=== PATIENT | female | born 2000 | race Caucasian/White ===

== ENCOUNTER 2019-04-21 13:09 | Emergency (ER) | payer SELFPAY ==
[~2019-04-21] VITALS: Ht 175.3 cm; Wt 120.2 kg
[2019-04-21 13:19] VITALS: BP 163/108
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
[2019-04-21] MEDS ORDERED: NEOMY/BACITR/POLYMYXIN OINT PACKET. TP ONE (13:45)
== END 2019-04-21 15:05 | disposition home or self-care (01) ==
LOC: ER 13:09
DX: T24.202A Burn of second degree of unspecified site of left lower limb, except ankle and foot, initial encounter (principal); X17.XXXA Contact with hot engines, machinery and tools, initial encounter; Y93.89 Activity, other specified; Y92.89 Other specified places as the place of occurrence of the external cause; Y99.8 Other external cause status
CPT/HCPCS: 16020; 99284

== ENCOUNTER 2019-05-02 19:45 | Emergency (ER) | payer SELFPAY ==
[~2019-05-02] VITALS: Ht 175.3 cm; Wt 120.2 kg
[2019-05-02 20:10] VITALS: BP 150/84
[2019-05-02] MEDS ORDERED: SULF1TAB24 PO (20:37)
[2019-05-02] MEDS ORDERED: MELO7.5T29 PO (20:37)
[2019-05-02] MEDS ORDERED: NEOM28.32 TP (20:37)
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
== END 2019-05-02 20:52 | disposition home or self-care (01) ==
LOC: ER 19:45
DX: T24.202D Burn of second degree of unspecified site of left lower limb, except ankle and foot, subsequent encounter (principal); X17.XXXD Contact with hot engines, machinery and tools, subsequent encounter
CPT/HCPCS: 99283